=== PATIENT | female | born 1990 | race Caucasian/White ===

== ENCOUNTER → 2016-07-11 | Outpatient (CLI) | payer OTHER ==
--- NOTE | 2016-07-11 15:47 | DI ---
OBSTETRICAL ULTRASOUND, 07/11/2016 2:08 PM: Clinical History: Verify dates. Previous Exam: None at this facility for this . LMP: 05/13/2016. There is a single live IUP currently in unstable position. Amnionic fluid content is normal. The plac enta is not visualized. heart rate is 156 beats/minute and regular. Both ovaries are normal. Th e yolk sac is visualized and unremarkable. CRL measurement is 18 mm. This measurement corresponds to an EGA value of 8 weeks 3 days. The US EDC is 02/17/2017. EDC by LMP is also 02/17/2017. Readin. Single live fetus with unstable presentation and normal amniotic fluid content. 2. The composite EGA is 8 weeks 3 days with an ultrasound EDC of 02/17/2017.
== END ==
LOC: US 14:04
PROVIDERS: ATTEND Student in an Organized Health Care Education/Training Program
DX: Z36 Encounter for antenatal screening of mother (principal)
CPT/HCPCS: 76801

== ENCOUNTER → 2016-07-11 | Outpatient (CLI) | payer OTHER ==
[2016-07-11 17:13] LABS: BASOPHILS # (AUTO) 0.03 10*3/UL; BASOPHILS % (AUTO) 0.2 % (0-1); EOSINOPHILS % (AUTO) 0.8 % (0-8); HEMATOCRIT 37.8 % (37.0-47.0); HEMOGLOBIN 13.2 g/dL (12.0-16.0); IMM GRAN % (AUTO) 0.4 % (0-5); IMM GRAN# (AUTO) 0.06 10*3/UL; LYMPHOCYTES # (AUTO) 3.26 10*3/uL; MEAN CORPUSCULAR HEMOGLOBIN 29.9 PG (27-31); MEAN CORPUSCULAR HGB CONC 34.9 g/dL (33-37); MEAN PLATELET VOLUME 9.1 FL (7.4-12.2); MONOCYTES # (AUTO) 0.83 10*3/UL (0.3-0.8); MONOCYTES % (AUTO) 6.1 % (5-15); NEUTROPHILS # (AUTO) 9.28 10*3/UL; NEUTROPHILS % (AUTO) 68.5 % (50-80); RDW COEFFICIENT OF VARIATION 12.9 % (11.5-14.5); RED BLOOD COUNT 4.41 10^6/uL (4.20-5.40); WHITE BLOOD COUNT 13.57 10^3/uL (4.8-10.8)
[2016-07-11 17:14] LABS: PLATELET MORPHOLOGY COMMENT NORMAL MORPHOLOGY (NORM); PRENATAL QUESTION YES (Y)
[2016-07-11 17:49] LABS: HIV ANTIBODY NEGATIVE (N); HIV-1 P24 ANTIGEN NEGATIVE (N)
[2016-07-14 23:46] LABS: HEP B SURFACE AG Negative (Negative)
[2016-07-14 23:47] LABS: RUBELLA IGG INDEX 0.5 (()); SYPHILIS IGG WITH REFLEX Negative (Negative)
== END ==
LOC: MOB LAB 16:30
PROVIDERS: ATTEND Student in an Organized Health Care Education/Training Program
DX: Z34.81 Encounter for supervision of other normal pregnancy, first trimester (principal)
CPT/HCPCS: 36415; 80081; 86900; 86901; 87088

== ENCOUNTER → 2016-08-12 | Outpatient (CLI) | payer OTHER ==
--- NOTE | 2016-08-14 23:24 | DI ---
US OB , LIMITED,08/12/2016 4:17 PM: Clinical History: Vaginal bleeding during intercourse. Previous Exam: None at this facility. Findings: Multiple grayscale and color Doppler sonographic images are obtained through the pelvis demonstrating a single live intrauterine gestation in breech presentation. Amniotic fluid is subjectively normal. There is normal motion of the limbs. Detected Doppler heart tones measure 152 beats per minute. There is normal respiratory motion of the hemidiaphragms. The placenta is anterior and grade 0 without visible defects. The cervix is long and closed measuring 5.3 cm in length. Estimated gestational age was determined by a composite of biparietal diameter, head circumference, abdominal circumference and femur length yielding an estimated gestational age by ultrasound of 14 we eks zero days. Estimated weight was 84 g (87th percentile). Impression: Single live intrauterine gestation with size equal to dates.
== END ==
LOC: US 15:57
PROVIDERS: ATTEND Student in an Organized Health Care Education/Training Program
DX: O20.9 Hemorrhage in early pregnancy, unspecified (principal); Z3A.13 13 weeks gestation of pregnancy
CPT/HCPCS: 76815

== ENCOUNTER → 2016-10-10 | Outpatient (CLI) | payer OTHER ==
--- NOTE | 2016-10-10 14:36 | DI ---
OBSTETRICAL ULTRASOUND, 10/10/2016 10:42 AM: Clinical History: Antepartum screening. Previous Exam: 07/11/2016; 08/12/2016. ADJUSTED DATE FROM EARLY OBUS: 05/13/2016. There is a single live IUP currently in unstable presentation. Amnionic fluid content is normal. Feta l activity is observed as follows: cardiac, extremity, and respiratory. The placenta is anterior maria g us and Grade 1. heart rate is 139 beats/minute and regular. There is a 3 vessel cord. The RVOT, LVOT and 4 chamber heart view are normal. The aortic arch and descending aorta are normal. Views of the spine, face, and kidneys are unremarkable. BPD, HC, AC, and FL measurements are 53 mm, 199 mm, 180 mm, and 38 mm, respectively. These measurements correspond to EGA values of 22 weeks 1 day, 2 2 weeks 1 day, 23 weeks 1 day and 22 weeks 2 days, respectively. Composite EGA is 22 weeks 3 days The US EDC is 02/10/2017. EDC by adjusted LMP is 02/17/2017. Readin. Single live fetus with unstable presentation and normal amniotic fluid content. Placenta is anter ior corpus and grade 1. 2. The composite EGA is 22 weeks 3 days with an ultrasound EDC of 02/10/2017. This is in contrast wit h 02/17/2017 that is based on the adjusted LMP date of 05/13/2016.
== END ==
LOC: US 10:35
PROVIDERS: ATTEND Student in an Organized Health Care Education/Training Program
DX: Z36 Encounter for antenatal screening of mother (principal); Z3A.21 21 weeks gestation of pregnancy
CPT/HCPCS: 76805; 87491; 87591

== ENCOUNTER 2016-11-18 07:00 | Outpatient (CLI) | payer OTHER ==
[2016-11-18] MEDS ORDERED: NORMAL SALINE 10 ML SYRINGE FLUSH IVP PRN (08:23)
[2016-11-18 08:29] VITALS: RESP 18; TEMP 98
[2016-11-18 09:33] LABS: CLARITY,URINE CLEAR (CLEAR); COLOR,URINE YELLOW; URINE SAMPLE TYPE CLEAN CATCH URINE
[2016-11-18 09:34] LABS: BILIRUBIN,URINE NEGATIVE (NEG); GLUCOSE, URINE (UA) NEGATIVE (NEG); NITRATE,URINE NEGATIVE (NEG); OCCULT BLOOD,URINE SMALL (NEG); PROTEIN,URINE NEGATIVE (NEG); UROBILINOGEN,URINE 0.2 mg/dL (0.2)
[2016-11-18 09:35] LABS: RBC,URINE 0-3 /hpf; SQUAMOUS EPITHELIAL CELL,UR RARE; WBC,URINE 0-3
--- NOTE | 2016-11-18 10:11 | DI ---
OBSTETRICAL ULTRASOUND WITH CERVICAL LENGTH MEASUREMENT AND PATTI, 11/18/2016 8:43 AM: Clinical History: Vaginal bleeding toward the end of the second trimester. Previous Exam: 07/11/2016; 08/12/2016; and 10/10/2016. LMP: 05/13/2016. There is a single live IUP currently in transverse lie. Amnionic fluid content is normal. The placent a is anterior corpus and Grade 1. Scans of the placenta show no evidence of a placenta previa or solis inal previa or abruption. heart rate is 170 beats/minute and regular. Cervical length measureme nt is obtained and the shortest measurement is 4.0 cm. Amnionic fluid index is 16.7 centimeters. Readin. Single live fetus in transverse lie. Placenta is anterior corpus and grade 1. There is no evidenc e of an abruption. 2. Amnionic fluid index is 16.7 cm.
[2016-11-18] MEDS ORDERED: BETAMET ACET/BETAMET NA PH 6 MG/1 ML - 5 ML IM SCH (11:15)
--- NOTE | 2016-11-25 09:52 | PDOC(PROG) ---
Intake - - Reason for Visit/Chief Complaint: Vaginal Bleeding Admitted From: Home - Estimated Due Date: 02/17/17 Gestational Age in Weeks and Days: 28 Weeks and 0 Days : 4 Para: 1 Term Births: 0 Births: 0 Number of Abortions (Spont./Elective): 2 Living Children: 0 - Labs Blood Type and Rh: A+ Group B Strep: Unknown Hepatitis B Surface Antigen: Absent HIV: Negative Rubella Status: Non-immune VDRL/RPR: Absent Maternal - Vital Signs Last Taken Vital Signs: Vital Signs - Last Taken Temperature 98.0 F 11/18/16 08:23 Pulse Rate 99 11/18/16 08:23 Respiratory Rate 18 11/18/16 08:23 Blood Pressure 117/50 11/18/16 08:23 Pulse Ox 99 11/18/16 08:23 - Uterine Activity Contraction Frequency(minutes): none noted or palpated - Vaginal Discharge Vaginal Bleeding Amount: Spotting Vaginal Bleeding Description: Brownish-Red Vaginal Discharge Amount: None Vaginal Itching: No Monitoring - Uterine Activity Contraction Frequency(minutes): none noted or palpated Results - Bedside Testing Bedside Urine Ketone: Negative Bedside Urine Leukocytes Esterase: Negative Bedside Urine Nitrite: Negative Bedside Urine Occult Blood: Small Bedside Urine Protein: Negative Bedside Specific [place]: 1.005 Assessment and Plan - Patient Problems (1) Spotting during in third trimester Status: Acute - Assessment / Plan Additional Assessment/Plan Details: -vaginosis panel negative -no contractions noted on monitor. -FFN returned as positive, though may be false positive due to a tiny amt of blood on the swab when it was run. -due to +FFN, pt was given a course of celestone. -f/u: as scheduled with Dr. Márquez in the office.
== END 2016-11-18 11:48 | disposition home or self-care (01) ==
LOC: OBOP 07:00
PROVIDERS: ATTEND Family Medicine
DX: O26.852 Spotting complicating pregnancy, second trimester (principal); Z3A.27 27 weeks gestation of pregnancy
CPT/HCPCS: 59025; 76815; 76817; 81001; 81003; 82731; 87480; 87510; 87660; 99211; J0702

== ENCOUNTER 2016-11-19 11:28 | Outpatient (CLI) | payer OTHER ==
--- NOTE | 2016-11-21 18:02 | PDOC(PROG) ---
Intake - - Reason for Visit/Chief Complaint: Vaginal Bleeding - Para: 1 Term Births: 0 Births: 0 Number of Abortions (Spont./Elective): 2 Living Children: 0 - Labs Blood Type and Rh: A+ Assessment and Plan - Patient Problems (1) Vaginal bleeding in Status: Acute Qualifiers: Trimester: third trimester Qualified Description: Antepartum hemorrhage , third trimester Qualifier Code(s): (O46.93) Antepartum hemorrhage, unspecified, third trimester - Assessment / Plan Additional Assessment/Plan Details: -FFN was positive, but had a spot of brown on it from bleeding. -vaginosis panel normal. -u/s showed no evidence of abnormality with the placenta, cervix appeared long. -due to + FFN, pt received course of betamethasone. -discussed labor precautions in detail. -f/u: as scheduled in the office.
== END 2016-11-19 11:39 | disposition home or self-care (01) ==
LOC: OBOP 11:28
PROVIDERS: ATTEND Family Medicine
DX: O46.92 Antepartum hemorrhage, unspecified, second trimester (principal); Z3A.26 26 weeks gestation of pregnancy
CPT/HCPCS: 96372

== ENCOUNTER 2016-11-26 11:50 | Outpatient (CLI) | payer OTHER ==
[2016-11-26 12:34] VITALS: RESP 20; TEMP 97.7
== END 2016-11-26 13:37 | disposition home or self-care (01) ==
LOC: OBOP 11:50
PROVIDERS: ATTEND Obstetrics & Gynecology
DX: O26.852 Spotting complicating pregnancy, second trimester (principal); Z3A.27 27 weeks gestation of pregnancy
CPT/HCPCS: 59025; 81003; 99211

== ENCOUNTER → 2016-12-05 | Outpatient (CLI) | payer OTHER ==
[2016-12-05 11:11] LABS: HEMATOCRIT 33.6 % (37.0-47.0); HEMOGLOBIN 11.5 g/dL (12.0-16.0); MEAN CORPUSCULAR HEMOGLOBIN 30.9 PG (27-31); MEAN CORPUSCULAR HGB CONC 34.2 g/dL (33-37); MEAN CORPUSCULAR VOLUME 90.3 FL (81-99); MEAN PLATELET VOLUME 9.5 FL (7.4-12.2); RED BLOOD COUNT 3.72 10^6/uL (4.20-5.40)
== END ==
LOC: LAB 09:41
PROVIDERS: ATTEND Student in an Organized Health Care Education/Training Program
DX: Z36 Encounter for antenatal screening of mother (principal); Z3A.29 29 weeks gestation of pregnancy
CPT/HCPCS: 36415; 82950; 85027

== ENCOUNTER 2016-12-21 11:32 | Outpatient (CLI) | payer OTHER ==
[2016-12-21 11:53] VITALS: RESP 18; TEMP 98.1
--- NOTE | 2016-12-21 14:13 | DI ---
LIMITED OBSTETRICAL ULTRASOUND FOR CERVICAL LENGTH MEASUREMENT, 12/21/2016 12:24 PM: Clinical History: Leaking membranes. Vaginal bleeding. Previous Exam: 11/18/2016. ADJUSTED LMP: 05/13/2016. Multiple transvaginal scans through the mid sagittal plane of the cervix are obtained during the Vals shabazz maneuver. The shortest cervical length measurement is 41 mm. Fluid is present in the cervical ca nal. Reading: The cervical length measurement is 41 mm.
--- NOTE | 2016-12-21 14:25 | DI ---
LIMITED OBSTETRICAL ULTRASOUND, 12/21/2016 12:17 PM Clinical History: Leaking membranes. Vaginal bleeding. Previous Exam: 07/11/2016; 08/12/2016; and 10/10/2016. ADJUSTED LMP: 05/13/2016. There is a single live IUP currently in transverse lie. Amnionic fluid content is normal. Amniotic fl uid index is 21.0 cm. activity is observed as follows: cardiac and extremity. The placenta is a nterior corpus and Grade 1. heart rate is 136 beats/minute and regular. No abnormalities are noted. BPD, HC, AC, and FL measurements are 82 mm, 296 mm, 290 mm, and 59 mm, respectively. These measurements correspond to EGA values of 33 weeks 0 days, 32 weeks 6 days, 33 weeks 1 day, and 30 we eks 6 days, respectively. Composite EGA is 32 weeks 4 days. The US EDC is 02/11/2017. EDC by adjusted LMP is 02/17/2017. Readin. Single live fetus with transverse lie. Amniotic fluid index is 21.0 cm. Placenta is anterior maria g us and grade 1. 2. The composite EGA is 32 weeks 4 days with an ultrasound EDC of 02/11/2017. Based on the adjusted L MP date of 05/13/2016, the EDC would be 02/17/2017.
--- NOTE | 2016-12-26 23:10 | PDOC(PROG) ---
Intake - - Reason for Visit/Chief Complaint: Cramping Admitted From: Home - LMP: 05/13/16 Estimated Due Date: 02/17/17 Gestational Age in Weeks and Days: 32 Weeks and 3 Days : 2 Para: 1 Term Births: 0 Births: 0 Number of Abortions (Spont./Elective): 2 Living Children: 1 - Labs Blood Type and Rh: A+ Group B Strep: Unknown Hepatitis B Surface Antigen: Absent HIV: Negative Rubella Status: Immune VDRL/RPR: Absent Maternal - Vital Signs Last Taken Vital Signs: Vital Signs - Last Taken Temperature 98.1 F 12/21/16 11:51 Pulse Rate 85 12/21/16 12:16 Respiratory Rate 18 12/21/16 12:16 Blood Pressure 127/57 12/21/16 12:16 Pulse Ox 99 12/21/16 11:51 - Uterine Activity Uterine Contraction Monitor Mode: None - Cervical Exam Cervical Dilation (cm): 0 Station: -4 - Vaginal Discharge Vaginal Bleeding Amount: Scant Vaginal Bleeding Description: Brown Vaginal Discharge Amount: None Monitoring - Uterine Activity Uterine Contraction Monitor Mode: None Results - Bedside Testing Bedside Urine Ketone: Trace Bedside Urine Leukocytes Esterase: Negative Bedside Urine Nitrite: Negative Bedside Urine Occult Blood: Moderate Bedside Urine Protein: 1+ Bedside Specific [place]: 1.025 Assessment and Plan - Patient Problems (1) Spotting during in third trimester Status: Acute
== END 2016-12-21 15:33 | disposition home or self-care (01) ==
LOC: OBOP 11:32
PROVIDERS: ATTEND Family Medicine
DX: O26.853 Spotting complicating pregnancy, third trimester (principal); O26.893 Other specified pregnancy related conditions, third trimester; R25.2 Cramp and spasm; N89.8 Other specified noninflammatory disorders of vagina; Z3A.31 31 weeks gestation of pregnancy
CPT/HCPCS: 59025; 76815; 76817; 81003; 99211

== ENCOUNTER 2017-01-04 12:05 | Outpatient (CLI) | payer OTHER ==
[2017-01-04] MEDS ORDERED: NORMAL SALINE 10 ML SYRINGE FLUSH IVP PRN (12:33)
[2017-01-04 13:24] VITALS: RESP 18; TEMP 98.1
--- NOTE | 2017-01-10 16:49 | PDOC(PROG) ---
Intake - - Reason for Visit/Chief Complaint: Decreased Movement, Vaginal Bleeding Admitted From: Home - Estimated Due Date: 02/17/17 Gestational Age in Weeks and Days: 34 Weeks and 4 Days Para: 1 Term Births: 0 Births: 0 Number of Abortions (Spont./Elective): 2 Living Children: 1 - Labs Blood Type and Rh: A+ Group B Strep: Unknown Hepatitis B Surface Antigen: Absent HIV: Negative Rubella Status: Immune VDRL/RPR: Absent Maternal - Vital Signs Last Taken Vital Signs: Vital Signs - Last Taken Temperature 98.1 F 01/04/17 13:19 Pulse Rate 90 01/04/17 13:19 Respiratory Rate 18 01/04/17 13:19 Blood Pressure 146/94 01/04/17 13:19 Pulse Ox 99 01/04/17 13:19 - Uterine Activity Uterine Contraction Monitor Mode: External Uterine Contraction Pattern: Absent - Vaginal Discharge Vaginal Bleeding Amount: Small Vaginal Bleeding Description: Brownish-Red Vaginal Bleeding Onset: 01/04/2017 10:00 Vaginal Discharge Amount: None Monitoring - Uterine Activity Uterine Contraction Monitor Mode: External Uterine Contraction Pattern: Absent Results - Bedside Testing Bedside Urine Ketone: Negative Bedside Urine Leukocytes Esterase: Negative Bedside Urine Nitrite: Negative Bedside Urine Occult Blood: Large Bedside Urine Protein: Trace Bedside Specific [place]: 1.020 Assessment and Plan - Assessment / Plan Additional Assessment/Plan Details: No active bleeding. Reassuring maternal and evaluation. Discharge to home in good condition. - Time Time Spent With Patient: Less Than 15 Minutes
== END 2017-01-04 14:20 | disposition home or self-care (01) ==
LOC: OBOP 12:05
PROVIDERS: ATTEND Obstetrics & Gynecology
DX: O26.853 Spotting complicating pregnancy, third trimester (principal); O36.8130 Decreased fetal movements, third trimester, not applicable or unspecified; Z3A.33 33 weeks gestation of pregnancy
CPT/HCPCS: 59025; 81003; 99211

== ENCOUNTER 2017-01-13 19:56 | Outpatient (CLI) | payer OTHER ==
[2017-01-13] MEDS ORDERED: NORMAL SALINE 10 ML SYRINGE FLUSH IVP PRN (20:36)
[2017-01-13 21:08] VITALS: RESP 18; TEMP 98
[2017-01-13] MEDS: BETAMET ACET/BETAMET NA PH 6 MG/1 ML - 5 ML IM SCH (21:28)
[2017-01-13 22:22] LABS: HEMATOCRIT 34.7 % (37.0-47.0); HEMOGLOBIN 11.9 g/dL (12.0-16.0); MEAN CORPUSCULAR HEMOGLOBIN 30.6 PG (27-31); MEAN CORPUSCULAR HGB CONC 34.3 g/dL (33-37); MEAN CORPUSCULAR VOLUME 89.2 FL (81-99); MEAN PLATELET VOLUME 10.2 FL (7.4-12.2); RED BLOOD COUNT 3.89 10^6/uL (4.20-5.40)
[2017-01-13 22:36] LABS: BLOOD UREA NITROGEN 6 mg/dL (7-22); CALCIUM 9.4 mg/dL (8.7-10.7); EST GLOMERULAR FILTRATION > 60 (>60 ml/min/1.73m(2)); SERUM ALBUMIN 3.3 g/dL (3.5-4.8); URIC ACID 4.6 mg/dl (2.5-6.2)
[2017-01-15 01:46] LABS: 24 HOUR URINE TOTAL VOLUME 3275 ML
--- NOTE | 2017-01-16 20:32 | PDOC(PROG) ---
Intake - - Reason for Visit/Chief Complaint: Vaginal Bleeding Admitted From: Home - LMP: 05/13/16 Estimated Due Date: 02/17/17 Gestational Age in Weeks and Days: 35 Weeks and 3 Days : 4 Para: 1 Term Births: 0 Births: 0 Number of Abortions (Spont./Elective): 2 Living Children: 1 - Labs Blood Type and Rh: O+ Maternal - Vital Signs Last Taken Vital Signs: Vital Signs - Last Taken Temperature 98.0 F 01/13/17 20:02 Pulse Rate 94 01/13/17 21:41 Respiratory Rate 18 01/13/17 20:02 Blood Pressure 150/81 01/13/17 21:41 Pulse Ox 98 01/13/17 21:41 - Uterine Activity Uterine Contraction Monitor Mode: External Contraction Frequency(minutes): x1 Contraction Duration (seconds): 40 Uterine Contraction Pattern: Absent Uterine Tone Measurement Phase: soft Uterine Contraction Intensity: Mild - Vaginal Discharge Vaginal Bleeding Amount: Small Vaginal Bleeding Description: Bright Red Vaginal Bleeding Onset: 01/13/17 Vaginal Discharge Amount: None Monitoring - Uterine Activity Uterine Contraction Monitor Mode: External Contraction Frequency(minutes): x1 Contraction Duration (seconds): 40 Uterine Contraction Pattern: Absent Uterine Tone Measurement Phase: soft Uterine Contraction Intensity: Mild Results - Labs CBC and BMP: 01/13/17 22:19 01/13/17 22:19 - Bedside Testing Bedside Urine Ketone: Negative Bedside Urine Leukocytes Esterase: Negative Bedside Urine Nitrite: Negative Bedside Urine Occult Blood: Large Bedside Urine Protein: Negative Bedside Specific [place]: 1.020 Assessment and Plan - Patient Problems (1) Vaginal bleeding in Status: Acute Qualifiers: Qualified Description: Antepartum hemorrhage, third trimester - Assessment / Plan Additional Assessment/Plan Details: -pt presents for second dose of betamethasone given in case the patient ends up delivering early due to mild pre-eclampsia and sporadic vaginal bleeding.
--- NOTE | 2017-01-17 06:31 | DI ---
US OB , LIMITED,01/13/2017 8:36 PM: Clinical History: Bleeding Previous Exam: December 21, 2016 Findings: Multiple transabdominal grayscale and color Doppler sonographic images are obtained demonstrating amn iotic fluid index of 20.8 cm. Detected Doppler heart tones measured 156 beats per minute. There is normal breathing motion identifi ed and normal motion of the limbs. Impression: 1. Normal amniotic fluid index. 2. Normal breathing motion. 3. Detected Doppler heart tones at 156 beats per minute.
== END 2017-01-13 23:40 | disposition home or self-care (01) ==
LOC: OBOP 19:56
PROVIDERS: ATTEND Family Medicine
DX: O46.93 Antepartum hemorrhage, unspecified, third trimester (principal); O14.03 Mild to moderate pre-eclampsia, third trimester; Z3A.34 34 weeks gestation of pregnancy
CPT/HCPCS: 36415; 59025; 76815; 80053; 81003; 83615; 84156; 84550; 85025; 96372; 99211; J0702

== ENCOUNTER 2017-01-14 21:19 | Outpatient (CLI) | payer OTHER ==
[2017-01-14] MEDS ORDERED: BETAMET ACET/BETAMET NA PH 6 MG/1 ML - 5 ML IM SCH (21:32)
--- NOTE | 2017-01-16 20:30 | PDOC(PROG) ---
Intake - - Reason for Visit/Chief Complaint: Vaginal Bleeding - Para: 1 Term Births: 0 Births: 0 Number of Abortions (Spont./Elective): 2 Living Children: 1 - Labs Blood Type and Rh: O+ Assessment and Plan - Patient Problems (1) Vaginal bleeding in Status: Acute Qualifiers: Qualified Description: Antepartum hemorrhage, third trimester - Assessment / Plan Additional Assessment/Plan Details: -bleeding resolved after arriving on labor and delivery unit. U/s showed no evidence of abnormalities with her placenta. She is rh positive. Will give steroids with concern that she may need to deliver sooner than 39 weeks (pt is repeat section). -blood pressures were noted to be slightly elevated, gestational HTN panel was drawn and was WNL. She will start a 24 hour urine for protein tomorrow. -strict labor precautions given per nursing staff.
== END 2017-01-14 21:35 | disposition home or self-care (01) ==
LOC: OBOP 21:19
PROVIDERS: ATTEND Family Medicine
DX: O46.93 Antepartum hemorrhage, unspecified, third trimester (principal); Z3A.34 34 weeks gestation of pregnancy
CPT/HCPCS: 96372

== ENCOUNTER 2017-01-16 10:47 | Outpatient (CLI) | payer OTHER ==
[2017-01-16] MEDS ORDERED: NORMAL SALINE 10 ML SYRINGE FLUSH IVP PRN (11:13)
[2017-01-16 14:43] LABS: HEMATOCRIT 34.4 % (37.0-47.0); HEMOGLOBIN 11.7 g/dL (12.0-16.0); RED BLOOD COUNT 3.78 10^6/uL (4.20-5.40)
[2017-01-16 14:44] LABS: MEAN PLATELET VOLUME 10.3 FL (7.4-12.2)
[2017-01-16 14:54] LABS: BLOOD UREA NITROGEN 6 mg/dL (7-22); CALCIUM 9.2 mg/dL (8.7-10.7); EST GLOMERULAR FILTRATION > 60 (>60 ml/min/1.73m(2)); SERUM ALBUMIN 3.7 g/dL (3.5-4.8); URIC ACID 5.3 mg/dl (2.5-6.2)
--- NOTE | 2017-01-16 15:05 | OB.PROGRES ---
Interval History: 26 yo at 35 3/7 by early u/s presented today with a cc of decreased FM since last night. Patient's complicated by 5 episodes of vaginal bleeding, all with reassuring evaluation. Last bleed was this . She is s/ p 2 courses of steroids, first course was given at 28 weeks for threatened labor and again on 01/13 & for vaginal bleeding. This weekend she was also noted to have increasing BPs. Laboratory studies this weekend were reassuring with respect to LFTs, Cr, Plts. Her 24 hour urine protein came back at 425mg this weekend. At her daughter's appt this morning she reported decreased FM since last night. BP in clinic was 138/72 - she was sent to L&D for NST. Today she has felt movement, but decreased. Denies FISCHER, vision changes, LOF. Has had minimal dark vaginal blood discharge since this weekend. She reports feeling lightheaded/ dizzy over the weekend. Did have strong painful contractions Monday night, but none since then. With her h/o preeclampsia, she was started on baby ASA at the end of her first trimester. She had quit taking it about 8 weeks, forgot to take it. OB history notable for delivery via primary C/S at 37 weeks 06/19/15 for preeclampsia with severe features (intractable FISCHER), failure to progress. Extraction was complicated and did require a J extension. 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, black mold (depakote 2012), PSH-c/s 06/19/15 SH-Non smoker, etoh prior to positive UPT, noillicit drug use FH-PGM - CAD, PGF - CAD, CVA Objective - Cervical Exam [place]: No contractions Heart Rate: baseline 150, mod variability, no decels, no accels - Labs CBC and BMP: 01/16/17 14:31 Labs - Last 24 Hours: Laboratory Results 01/16/17 Range/Units 14:31 WBC 15.16 H (4.8-10.8) 10^3/uL RBC 3.78 L (4.20-5.40) 10^6/uL Hgb 11.7 L (12.0-16.0) g/dL Hct 34.4 L (37.0-47.0) % MCV 91.0 (81-99) FL MCH 31 (27-31) PG MCHC 34.0 (33-37) g/dL RDW Std Deviation 42.2 (39-50) fL RDW Coeff of Eleuterio 13.1 (11.5-14.5) % Plt Count 290 (140-350) 10*3/uL MPV 10.3 (7.4-12.2) FL - Vital Signs Last Taken Vital Signs: Vital Signs - Last Taken Temperature 97.9 F 01/16/17 11:15 Pulse Rate 63 01/16/17 13:00 Respiratory Rate 16 01/16/17 11:15 Blood Pressure 116/71 01/16/17 12:30 Pulse Ox 98 01/16/17 13:00 BPS have ranged 116/71-153/98 - Additional Details Additional Details: BPP 6/ - nonreactive NST, no breathing documented in 30 mins PATTI 15 Grade 2 placenta Placenta is anterior, low laying - unable to see if it is at the previous scar Assessment and Plan - Patient Problems (1) Preeclampsia Current Visit: Yes Status: Acute Support Text: 26 yo at 35 3/7 weeks gestation with preeclampsia without severe features, h/o repeated vaginal bleeding with possible abruption. Case discussed with ALEX Monique at [facility] - given 11/26 BPP, progression of preeclampsia and concern for abruption will transfer to [facility] for further evaluation and treatment.
[2017-01-16] MEDS ORDERED: Lactated Ringers-OB Dept 1,000 ML ONE (16:59)
[2017-01-16 17:55] VITALS: RESP 18; TEMP 97.7
--- NOTE | 2017-01-17 06:31 | DI ---
US OB BIOPHYS PROFILE W/NST,01/16/2017 11:46 AM: Clinical History: Decreased movement Previous Exam: None at this facility. Findings: Multiple grayscale and color Doppler sonographic images are obtained through the pelvis, and demonstr ate an anterior placenta which is grade 3 without visible defects. There is no evidence of percreta o n ultrasound images. Amniotic fluid index measured 15 cm. Spontaneous motion is identified. There is no respiratory motion identified. Detected Doppler heart tones measure 140 beats per minute. Impression: Biophysical profile measuring 6/8 Normal anterior placenta.
== END 2017-01-16 17:12 | disposition short-term general hospital (02) ==
LOC: OBOP 10:47
PROVIDERS: ATTEND Student in an Organized Health Care Education/Training Program
DX: O14.93 Unspecified pre-eclampsia, third trimester (principal); O36.8130 Decreased fetal movements, third trimester, not applicable or unspecified; Z3A.35 35 weeks gestation of pregnancy
CPT/HCPCS: 36415; 59025; 76818; 80053; 81003; 83615; 84550; 85025; 99211; J7120